=== PATIENT | male | born 1940 | race Caucasian/White ===

== ENCOUNTER 2018-11-20 05:47 | Day surgery (SDC) | payer OTHER, BC ==
[~2018-11-20] VITALS: Ht 170.2 cm; Wt 83.9 kg
--- NOTE | ~2018-11-20 | O ---
[facility] [place] [address] OPERATIVE REPORT Name: LALIT LARA Room #: 150-14 [facility].#: [id number] Admission: 11/20/18 ������������������ Attend Phys: Titi Wheatley MD Discharge: ������������������ Date of : 42 Report #: [id number] THIS REPORT FOR: //name// CC: Glenna Wheatley DATE OF SERVICE: 11/20/2018 SURGEON: Titi Wheatley MD SECTION HAND: None. PREOPERATIVE DIAGNOSIS: Bilateral lower lid ectropion. POSTOPERATIVE DIAGNOSIS: Bilateral lower lid ectropion. OPERATION PERFORMED: Bilateral lower lid ectropion repair. ANESTHESIA: Local with IV sedation. COMPLICATIONS: None. INDICATIONS FOR PROCEDURE: This patient has bilateral acquired lower lid ectropion with chronic tearing and discharge. The current procedures are undertaken in order to improve the patient's visual function, lacrimal outflow, and level of comfort. Informed consent was obtained to include but not limit to the risk of loss of vision, bleeding, infection, scarring, failure to improve the problem and need for further surgery. DESCRIPTION OF OPERATION: The patient was taken to the operating room where 2% Xylocaine with epinephrine mixed with equal parts of 0.75% Marcaine with Wydase was administered transcutaneously and transconjunctivally to each lower lid and lateral canthal area. The patient was then prepped and draped in the usual sterile fashion. A Daryl clamp was then used to clamp the left lateral canthus following which a sharp canthotomy and cantholysis were performed. The tarsal strip was prepared laterally, removing the lash bearing portion of the redundant lid margin and the redundant tarsal plate. Hemostasis was achieved with a monopolar cautery, as it was throughout the case. The tarsal strip was then secured to the internal portion of the lateral orbital tubercle with two interrupted 5-0 Prolene sutures. The lateral canthal angle was sharply reformed as the subcutaneous structures and the skin were closed with multiple interrupted 6-0 plain gut sutures. Attention was then turned to the right side where the same procedure was [facility] [address] [place] [address] OPERATIVE REPORT Name: LALIT LARA Room #: 150-14 [facility]#: [id number] Admission: 11/20/18 ������������������ Attend Phys: Titi Wheatley MD Discharge: ������������������ Date of : 42 Report #: [id number] performed. The wounds were cleaned and dressed with ophthalmic antibiotic ointment. The patient was then transported to the recovery area, having tolerated the procedure well with no anesthetic or operative complications being noted. ��������������������������������������������� ���������������������������������������� By: ��������������������������������������������� [id number] Titi Wheatley MD /nt
[~2018-11-20 05:47] MED LIST: ASPIRIN EC81 M1 PO; CALCIUM; CARAFATE 1 GM TA1 G1 PO; CELEBREX 200 M200 M1 PO; CRESTOR10 MG PO; DESYREL100 MG PO; FISH OIL 1,0001 EAC5; IRON325 PO; LIPITOR 20 MG T20 M1 PO; LOSARTAN POTAS100 MG PO; NIFEDIPINE ER30 M1 PO; PAROXETINE HCL20 MG PO; PERCOCET 5-3251 EACH PO; PROTONIX40 M1 PO; SPIRIVA18 MCG INH; SYNTHROID75 MCG PO; TESTOSTERO200 MG/1 M IM; VITAMIN D-32000 UNIT PO; XALATAN2.5 ML OPHTHALMIC; ZANTAC 150MG T150 MG PO
[2018-11-20 11:11] VITALS: BP 135/77
== END 2018-11-20 11:45 | disposition home or self-care (01) ==
LOC: OR 05:47 → TBA 05:47 → OR 06:35
DX: H02.105 Unspecified ectropion of left lower eyelid (principal); H02.102 Unspecified ectropion of right lower eyelid; I10 Essential (primary) hypertension; J43.9 Emphysema, unspecified; E78.5 Hyperlipidemia, unspecified; F32.9 Major depressive disorder, single episode, unspecified; E03.9 Hypothyroidism, unspecified; D64.9 Anemia, unspecified; K21.9 Gastro-esophageal reflux disease without esophagitis; N40.0 Benign prostatic hyperplasia without lower urinary tract symptoms; Z90.49 Acquired absence of other specified parts of digestive tract; Z87.891 Personal history of nicotine dependence; Z98.0 Intestinal bypass and anastomosis status; Z98.41 Cataract extraction status, right eye; Z98.42 Cataract extraction status, left eye; Z98.890 Other specified postprocedural states; Z79.899 Other long term (current) drug therapy; Z79.82 Long term (current) use of aspirin
CPT/HCPCS: 50010; 50101; 50386; 50398; 51636; 56527; 56531

== ENCOUNTER 2018-12-18 05:17 | Day surgery (SDC) | payer OTHER, BC ==
[~2018-12-18] VITALS: Ht 170.2 cm; Wt 83.9 kg
--- NOTE | ~2018-12-18 | O ---
[facility] [place] [address] OPERATIVE REPORT Name: LALIT LARA Room #: 150-4 [facility].#: [id number] Admission: 12/18/18 ������������������ Attend Phys: Titi Wheatley MD Discharge: ������������������ Date of : 42 Report #: [id number] THIS REPORT FOR: //name// CC: Glenna Wheatley DATE OF SERVICE: 12/18/2018 CONCRETE TECHNICIAN: None. PREOPERATIVE DIAGNOSIS: Bilateral upper lid ptosis with superior visual field defects both eyes. POSTOPERATIVE DIAGNOSIS: Bilateral upper lid ptosis with superior visual field defects both eyes. OPERATION PERFORMED: Bilateral upper lid functional ptosis repair. CONCRETE TECHNICIAN: None. ANESTHESIA: Local with IV sedation. COMPLICATIONS: None. INDICATIONS FOR PROCEDURE: This patient has bilateral upper lid ptosis with superior visual field loss both eyes. Visual field testing demonstrates dense superior visual defects. Retesting with the upper lid elevated shows an improvement in visual field loss of over 30% and in excess of 12 degrees. The current procedure is being undertaken in order to improve the patient's visual function. Informed consent was obtained to include but not limited to the risk of loss of vision, bleeding, infection, scarring, failure to improve the problem and need for further surgery, such as adjustment of lid height. DESCRIPTION OF PROCEDURE: The patient was taken to the operating room, where 2% Xylocaine with epinephrine mixed with equal parts of 0.75% Marcaine with Wydase was administered transcutaneously to each upper lid. The patient was then prepped and draped in the usual sterile fashion. An upper lid crease incision was then made bilaterally and the dissection was carried down until the orbital septum was identified. The orbital septum was then cleared and the preaponeurotic fat identified. The levator aponeurosis was then disinserted from the anterior surface of the tarsal plate and dissected [address] [address] OPERATIVE REPORT Name: LALIT LARA Gabbi Room #: 150-4 [facility].#: [id number] Admission: 12/18/18 ������������������ Attend Phys: Titi Wheatley MD Discharge: ������������������ Date of : 42 Report #: [id number] free in the avascular Viramontes's muscle plane. The aponeurosis was then advanced and reattached to the anterior surface of the tarsal plate with interrupted mattress 6-0 Novafil sutures on each side, adjusting for height and contour. The redundant aponeurosis was then amputated. The incision was then closed with multiple interrupted 6-0 chromic sutures that were used to recreate an upper lid crease. The skin was closed with a running 6-0 plain gut suture. The wound was then cleaned and dressed with ophthalmic antibiotic ointment followed by a Telfa pad. The patient was transported to the recovery area, having tolerated the procedure well with no anesthesia or operative complications being noted. ��������������������������������������������� ���������������������������������������� By: ��������������������������������������������� [id number] Titi Wheatley MD /veena
[2018-12-18 08:45] VITALS: BP 97/75
== END 2018-12-18 11:06 | disposition home or self-care (01) ==
LOC: TBA 05:17 → OR 05:17 → TBA 05:18 → OR 07:27
DX: H02.413 Mechanical ptosis of bilateral eyelids (principal); H53.462 Homonymous bilateral field defects, left side; H53.461 Homonymous bilateral field defects, right side; J43.9 Emphysema, unspecified; N40.0 Benign prostatic hyperplasia without lower urinary tract symptoms; F32.9 Major depressive disorder, single episode, unspecified; Z87.891 Personal history of nicotine dependence; E78.5 Hyperlipidemia, unspecified; D64.9 Anemia, unspecified; K21.9 Gastro-esophageal reflux disease without esophagitis; E03.9 Hypothyroidism, unspecified; Z90.49 Acquired absence of other specified parts of digestive tract; Z98.890 Other specified postprocedural states; Z79.899 Other long term (current) drug therapy; Z98.41 Cataract extraction status, right eye; Z98.42 Cataract extraction status, left eye; Z98.0 Intestinal bypass and anastomosis status
CPT/HCPCS: 50010; 50101; 50386; 50398; 51636; 56528; 56531; 62110; 62850; 70005

== ENCOUNTER 2019-09-13 15:06 | Inpatient (IN) | payer OTHER, BC ==
[~2019-09-13] VITALS: Ht 170.2 cm; Wt 79.4 kg
[2019-09-13 15:06] VITALS: BP 147/124
[2019-09-13 18:31] LABS: HEMOGLOBIN 14.1 gm/dL (14.0-18.0); MCH 28.5 pg (26.0-34.0); MCHC 32.7 g/dL (28.0-37.0); MCV 87.3 fL (80.0-100.0); RBC 4.93 mil/uL (4.50-6.00); RDW 16.1 % (10.5-14.5); WBC 12.5 thou/uL (4.0-11.0)
[2019-09-13 18:38] LABS: CALCIUM 9.3 mg/dL (8.5-10.1); CREATININE 1.3 mg/dL (0.7-1.3); POTASSIUM 4.4 mmol/L (3.5-5.1)
[2019-09-13 18:44] LABS: ALBUMIN 3.7 g/dL (3.4-5.0); TOTAL BILIRUBIN 0.6 mg/dL (<0.1-1.0); TOTAL PROTEIN 7.4 g/dL (6.4-8.2)
[2019-09-14] MEDS ORDERED: PROSCAR 5MG TABL5 M1 PO (00:06)
--- NOTE | 2019-09-14 04:31 | NUR ---
new pt from the er admitted with a fall from home. pt has been able to use the urinal and sat on the bsc once because he thought he had to move his bowels. pt c/o of minor pain with movement but declined pain meds. PT/OT is ordered. pt is a&ox4 on roomair. getting scheduled neb treatments. no s/s of distress. will cont to monitor
[2019-09-14 09:10] VITALS: BP 139/74
[2019-09-14 10:44] LABS: PROTIME 10.2 Seconds (9.3-11.4)
[2019-09-14 15:06] LABS: HEMATOCRIT 43.9 % (42.0-52.0); HEMOGLOBIN 14.5 gm/dL (14.0-18.0); MCH 28.5 pg (26.0-34.0); MCV 86.5 fL (80.0-100.0); RBC 5.08 mil/uL (4.50-6.00); RDW 16.2 % (10.5-14.5); WBC 11.4 thou/uL (4.0-11.0)
--- NOTE | 2019-09-14 16:07 | NUR ---
PT ADMITTED RELATED TO FALL. CM REVIEWED CHART AND SPOKE WITH CARE TEAM. CM MET WITH PT AT BEDSIDE THIS DAY. PT IS A&O X4. CM ROLE INTRODCUED. PT INDICATED HE LIVES IN A HOUSE WITH HIS SPOUSE WITH 2-3 STEPS TO ENTER AND A FULL FLIGHT OF STEPS TO BASMENT WHICH HE FELL DOWN THREE DAYS AGO. PT INDICATED HE HAD BEEN INDEPDENENT WITH GAIT AND ADLS PRIOR TO HIS FALL. PT INDICATED NO PRIOR HH OR SNF HX. PT HOPES TO BE ABLE TO RETURN HOME ONCE MEDICALLY STABLE. CM TO FOLLOW INDICATED WITH DC PLANNING.
[2019-09-14 19:05] VITALS: BP 120/79
--- NOTE | 2019-09-14 20:13 | NUR ---
Assumed pt care this am, VS have been stable. MRI done and pt is to go for a procedure in IR mauricio first thing (vertibroplasty). Consent signed, NPO midnight onwards, pt aware. Pain is noted with movement, maintained on bed rest and less that 30 degress for the head of bed. Spine precautions in place and observed. POC followed, no signs or verbaliations of distress noted. Pain managed with medication. Endorsed tpo the night nurse.
[2019-09-15] VITALS (8 sets, daily range): BP systolic 117–140; BP diastolic 67–89
--- NOTE | 2019-09-15 03:47 | NUR ---
ASSUMED CARE OF PT AT 1900HRS. PT IS AOX4 AND LETS NEEDS BE KNOWN. FALL PRECAUTION IN PLACE. SPINE PRECAUTION IN PLACE. PT WAS EDUCATED ABOUT SPINE PRECAUTION AND PT COMMUNICATES UNDERSTANDING. HOWEVER, PT WAS FOUND TO BE SITTING ON THE EDGE OF THE BED WHILE USING URINAL. PT WAS EREDUCATED ON THIS. POT PLACED ON NPO AT WI FOR PROCEDURE IN THE AM. PT WAS ABLE TO GET COMFORTABLE AND SLEEP APART OF THE SHIFT. VSS AND NO S/S OF ACUTE DISTRESS. WILL CONTINUE TO MONITOR.
[2019-09-15 07:21] LABS: HEMATOCRIT 45.6 % (42.0-52.0); HEMOGLOBIN 15.1 gm/dL (14.0-18.0); MCH 28.8 pg (26.0-34.0); MCHC 33.1 g/dL (28.0-37.0); MCV 87.1 fL (80.0-100.0); RBC 5.23 mil/uL (4.50-6.00); RDW 16.3 % (10.5-14.5); WBC 10.3 thou/uL (4.0-11.0)
--- NOTE | 2019-09-15 13:02 | NUR ---
Received awake on bed. On nothing per orem- pt informed and aware. For IR Vertebroplasty of L3-L4 today- consent signed. On room air. Vital signs stable. On spine precautions- pt informed and reminded from time to time. With at bedside. Assisted in ADLs. With SL at R AC- intact. Complained of pain, due PRN pain meds given as prescribed. IR staff brought patient down for procedure, report given. Pt back to ng, transferred safely, SENIOR SITE MANAGER took post procedure vital signs. Clear liquid tolerated, resumed previous regular diet. Missed medications from this morning given as prescribed. Visited by relative this PM.
--- NOTE | 2019-09-16 03:30 | NUR ---
ASSUMED CARE OF PT AT 1900HRS. PT IS AOX4 AND LETS NEEDS BE KNOWN. FALL PRECAUTION IN PLACE. SPINE PRECAUTION DCed. PT IS POST OP DAY 0. BANDAIDS AT SURGICAL SITE ARE INTACT. NO BLEEDING NOTED. PT REPORTED SOME PAIN AND WAS TREATED WITH PRN PAIN MEDS. PT WAS ABLE TO GET COMFORTABLE AND SLEEP PART OF THE SHIFT. WILL CONTINUE TO MONITOR.
[2019-09-16 05:15] VITALS: BP 135/73
[2019-09-16 06:20] LABS: ALBUMIN 2.9 g/dL (3.4-5.0); CALCIUM 8.9 mg/dL (8.5-10.1); CREATININE 1.2 mg/dL (0.7-1.3); POTASSIUM 4.2 mmol/L (3.5-5.1)
[2019-09-16 08:10] VITALS: BP 127/67
[2019-09-16] MEDS ORDERED: MIRALAX17 GM PO (08:33)
[2019-09-16] MEDS ORDERED: OXYCODONE HCL 55 MG PO (08:33)
[2019-09-16] MEDS ORDERED: SENNA-TIME S T1 EACH PO (08:34)
[2019-09-16 12:12] VITALS: BP 127/67
--- NOTE | 2019-09-16 12:14 | NUR ---
CARE TEAM INDICATED THAT PT IS MEDICALLY STABLE TO DC HOME THIS DAY. CM SENT REFERRAL TO [facility] FOR PT, OT, NURSING HH SERVICES. NO OTHER CM INTERVENTION INDICATED. CASE CLOSED.
[2019-09-16 12:43] VITALS: BP 127/67
--- NOTE | 2019-09-16 13:51 | NUR ---
DISCHARGE PLANNING. ANTICIPATED DISCHARGE TO HOME TODAY WITH HOME HEALTH SERVICES. PATIENT REFERRAL FAXED TO [facility] PER REQUEST. CALL PLACED TO [facility] TO NOTIFY, SPOKE WITH ROGELIO. ROGELIO TO FACILITATE HH ONCE DISCHARGE/HH ORDERS RECEIVED. FOLLOWING.
--- NOTE | 2019-09-16 14:14 | NUR ---
PT A&OX4, VSS, DENIES PAIN. PT LUNGS CLEAR, NON PRODUCTIVE COUGH. BREATHING REGULAR. NO SIGNS OF DISTRESS. PATIENT USING INCENTIVE SPIROMETER. PATIENT WALKED WITH PT AND WAS CLEARED TO HOME HOME WITHOUT HOME MEDICAL EQUIPMENT. ENTRY SITES, TWO, ON BACK HAS NO DRAINAGE, NO REDNESS OR ABNORMAL SURROUNDING TISSUE. AT BEDSIDE. PATIENT COMMUNICATES UNDERSTANDING OF DISCHARGE INSTRUCTIONS AND PRESCRIPTIONS. ALL BELONGINGS WITH PATIENT, IV REMOVED.
== END 2019-09-16 14:20 | disposition home health service (06) | DRG 515 ==
LOC: ER 15:06 → 4W 18:09 → EROBS 18:09 → 4W 22:11 → ENTRNSPT 09-16 13:29 → EDTRNSPTSTS 09-16 13:31 → 4W 09-16 14:20
PROVIDERS: Physician Assistant; Radiology Diagnostic Radiology; Surgery; ADMIT Internal Medicine
PROC: 0QS03ZZ Reposition Lumbar Vertebra, Percutaneous Approach (ICD-10-PCS; principal; 2019-09-15)
PROC: 0QU03JZ Supplement Lumbar Vertebra with Synthetic Substitute, Percutaneous Approach (ICD-10-PCS; principal; 2019-09-15)
DX: S32.049A Unspecified fracture of fourth lumbar vertebra, initial encounter for closed fracture (principal); J96.90 Respiratory failure, unspecified, unspecified whether with hypoxia or hypercapnia; S22.42XA Multiple fractures of ribs, left side, initial encounter for closed fracture; W10.9XXA Fall (on) (from) unspecified stairs and steps, initial encounter; Y93.01 Activity, walking, marching and hiking; E78.5 Hyperlipidemia, unspecified; J44.9 Chronic obstructive pulmonary disease, unspecified; N40.0 Benign prostatic hyperplasia without lower urinary tract symptoms; E03.9 Hypothyroidism, unspecified; K21.9 Gastro-esophageal reflux disease without esophagitis; F32.9 Major depressive disorder, single episode, unspecified; E11.22 Type 2 diabetes mellitus with diabetic chronic kidney disease; I12.9 Hypertensive chronic kidney disease with stage 1 through stage 4 chronic kidney disease, or unspecified chronic kidney disease; N18.3 Chronic kidney disease, stage 3 (moderate); Z87.891 Personal history of nicotine dependence; Y92.098 Other place in other non-institutional residence as the place of occurrence of the external cause; Z90.49 Acquired absence of other specified parts of digestive tract; Y99.8 Other external cause status; Z98.42 Cataract extraction status, left eye; Z98.41 Cataract extraction status, right eye; Z79.899 Other long term (current) drug therapy
CPT/HCPCS: 10047

== ENCOUNTER → 2020-05-27 | Outpatient (CLI) | payer OTHER, BC ==
[~2020-05-27] MED LIST changes: +MIRALAX17 GM PO; +OXYCODONE HCL 55 MG PO; +PROSCAR 5MG TABL5 M1 PO; +SENNA-TIME S T1 EACH PO
== END ==
LOC: LAB 12:04
PROVIDERS: ATTEND Anesthesiology
DX: Z01.812 Encounter for preprocedural laboratory examination (principal); Z20.828 Contact with and (suspected) exposure to other viral communicable diseases